=== PATIENT | female | born 1950 | race Caucasian/White ===

== ENCOUNTER → 2016-11-27 | Outpatient (CLI) | payer MEDICARE, BC | LOC: MC.RAD 09:00 | DX: Z12.31 Encounter for screening mammogram for malignant neoplasm of breast (principal) ==

== ENCOUNTER → 2019-07-04 | Outpatient (CLI) | payer MEDICARE, OTHER | LOC: MC.RAD 14:14 | DX: Z12.31 Encounter for screening mammogram for malignant neoplasm of breast (principal) ==

== ENCOUNTER → 2020-09-17 | Outpatient (CLI) | payer MEDICARE | LOC: MC.RAD 10:11 | DX: Z12.31 Encounter for screening mammogram for malignant neoplasm of breast (principal); N64.9 Disorder of breast, unspecified ==

== ENCOUNTER → 2020-09-24 | Outpatient (CLI) | payer MEDICARE | LOC: MC.RAD 14:00 | DX: N60.02 Solitary cyst of left breast (principal); N64.9 Disorder of breast, unspecified ==

== ENCOUNTER → 2021-04-10 | Outpatient (CLI) | payer MEDICARE | LOC: MC.RAD 14:00 | DX: N63.20 Unspecified lump in the left breast, unspecified quadrant (principal) ==